=== PATIENT | female | born 1985 | race Caucasian/White ===

== ENCOUNTER → 2020-09-01 12:05 | Outpatient (BNVA) | payer OTHER, SELFPAY | PROVIDERS: Family Provider Family Medicine; Visit Provider Nurse Practitioner Family | DX: Z20.828 Contact with and (suspected) exposure to other viral communicable diseases (principal) | CPT/HCPCS: 87635 ==

== ENCOUNTER → 2020-11-24 18:30 | Outpatient (BNVA) | payer OTHER, SELFPAY | PROVIDERS: Family Provider Family Medicine; Visit Provider Nurse Practitioner | DX: S59.902A Unspecified injury of left elbow, initial encounter (principal); W00.0XXA Fall on same level due to ice and snow, initial encounter | CPT/HCPCS: 73080 ==

== ENCOUNTER → 2021-12-06 11:51 | Outpatient (BNVA) | payer OTHER, SELFPAY | PROVIDERS: Referring Provider Nurse Practitioner Family; Visit Provider Surgery | DX: Z20.822 Contact with and (suspected) exposure to COVID-19 (principal); Z11.52 Encounter for screening for COVID-19 | CPT/HCPCS: 87635 ==

== ENCOUNTER 2021-12-13 08:11 | Day surgery (SDC) | payer OTHER, SELFPAY ==
[2021-12-09 11:14] VITALS: BMI 43.8
--- NOTE | 2021-12-13 08:38 | ANES.PREANE2 ---
Pre-Anesthetic Assessment Height/Weight: Height 1.7 m Weight 127.006 kg Operation Date: 12/13/21 09:30 Proposed Procedures p [id number](Not Applicable) - Ilia Horan MD Familial anesthetic complications: None Was Beta Tony taken within 24 hours: N/A Was Clonidine taken within 24 hours: N/A Social No alcohol and No tobacco Exam alert, oriented x 3, clear to auscultation bilaterally and regular rate & rhythm Airway Submandibular: within normal limits Cervical ROM: within normal limits Mallampati: Class II Dentition: full GI Gastroesophageal Reflux Disease Metabolic Morbid Obesity Anesthetic Plan ASA status: 2 Anesthesia: MAC Medications/Allergies Home Medications Medication Instructions Recorded Confirmed Last Taken Type ferrous sulfate 325 mg (65 mg 325 mg PO EVERY OTHER DAY 12/06/21 12/09/21 12/08/21 History iron) tablet norethindrone 1 mg-ethinyl tab PO DAILY 12/09/21 12/09/21 History estradiol 10 mcg (24)-iron 10 mcg(2) tablet (Lo Loestrin Fe) Allergies Allergy/AdvReac Type Severity Reaction Status Date / Time No Known Allergies Allergy Verified 12/06/21 11:29 [facility] Anesthesia Medical History GERD (gastroesophageal reflux disease) Social History Smoking and tobacco status: current every day smoker Data Anesthesia Cardiac Studies: No Data to Display
--- NOTE | 2021-12-13 08:55 | W.PM.OPSFHP ---
Same Day Surgery H&P Indication for Procedure/HPI DATE OF PROCEDURE: December 13, 2021 CHIEF COMPLAINT/INDICATIONFOR SURGICAL PROCEDURE: gerd PREOP DIAGNOSIS: gerd/.egd PLANNED PROCEDURE: Operation Date: 12/13/21 09:30 Proposed Procedures p [id number](Not Applicable) - Ilia Horan MD Medications/Allergies* Home Medications Medication Instructions Recorded Confirmed Type ferrous sulfate 325 mg (65 mg 325 mg PO EVERY OTHER DAY 12/06/21 12/09/21 History iron) tablet norethindrone 1 mg-ethinyl tab PO DAILY 12/09/21 History estradiol 10 mcg (24)-iron 10 mcg(2) tablet (Lo Loestrin Fe) Allergies/Adverse Reactions Allergy/AdvReac Type Severity Reaction Status Date / Time No Known Allergies Allergy Verified 12/06/21 11:29 Pertinent History/Comorbid Conditions* Medical History (Updated 12/06/21 @ 13:14 by Ilia Horan MD) GERD (gastroesophageal reflux disease) Social History Smoking and tobacco status: current every day smoker Pertinent Exam Findings alert, oriented x 3 and regular rate & rhythm Recommendations Surgery/Procedure today Coding Level of Care Code 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
[2021-12-13 09:04] VITALS: BP 114/79; PULSE 80; RESP 18; TEMP 36.4; O2SAT 96
[2021-12-13 09:26] LABS: OR HCG Qualitative Urine Negative (Negative)
[2021-12-13 11:46] VITALS: BP 142/87; PULSE 72; RESP 20; TEMP 36.1; O2SAT 95
[2021-12-13 11:58] VITALS: BP 138/90; PULSE 79; RESP 20; O2SAT 98
[2021-12-13] MEDS: sodium chloride 0.9% 1,000 ML 30 ML IV (12:35)
--- NOTE | 2021-12-13 14:27 | ANE.PACU2 ---
Inpatient post-anesthesia follow up: Airway intact: Yes Vital signs: Temperature 97 F Pulse Rate 79 Respiratory Rate 20 Blood Pressure 138/90 Pulse Oximetry 98 Oxygen Delivery Me thod Room Air Oxygen Flow Rate 2 Fraction of Inspir ed Oxygen Hydration adequate: Yes Nausea and vomiting: No Pain level: 1 Mental status: Baseline
== END 2021-12-13 12:20 | disposition home or self-care (01) ==
PROVIDERS: Anesthesiology; Visit Provider Surgery
PROC: 0DJ08ZZ Inspection of Upper Intestinal Tract, Via Natural or Artificial Opening Endoscopic (ICD-10-PCS; CPT 43235; principal; 2021-12-13 09:30)
DX: K21.9 Gastro-esophageal reflux disease without esophagitis (principal); F17.210 Nicotine dependence, cigarettes, uncomplicated; K44.9 Diaphragmatic hernia without obstruction or gangrene; K29.50 Unspecified chronic gastritis without bleeding; E66.01 Morbid (severe) obesity due to excess calories; Z68.41 Body mass index [BMI] 40.0-44.9, adult
CPT/HCPCS: 43239; 81025; 84703; 88305; J7030

== ENCOUNTER 2022-01-12 12:00 | Outpatient (CLI) | payer OTHER, SELFPAY | END 2022-01-12 12:01 | disposition home or self-care (01) | LOC: SLEEP 01-13 12:00 | PROVIDERS: Visit Provider Nurse Practitioner Family | DX: F51.8 Other sleep disorders not due to a substance or known physiological condition (principal) | CPT/HCPCS: G0399 ==